=== PATIENT | male | born 1985 | race Two or more races ===

== ENCOUNTER 2019-12-31 21:24 | Emergency (ER) | payer OTHER ==
[~2019-12-31] VITALS: Ht 167.6 cm; Wt 68.0 kg
[2019-12-31 22:00] VITALS: BP 124/79
--- NOTE | 2019-12-31 22:09 | Emergency Room Report ---
History of Present Illness General Chief Complaint: Laceration Source: Patient Present Illness HPI Is a 34-year-old male who is right-hand dominant. He works at a nearby restaurant. He sustained a laceration because he cut his left thumb with a knife. Onset prior to arrival. No active bleeding. Pain is well controlled. Bleeding is controlled. No other injury. Nothing made it better. Nothing made it worse. Allergies: Coded Allergies: No Known Allergies (Unverified , 12/31/19) Patient History Past Medical History: see triage record, old chart reviewed Past Surgical History: none Pertinent Family History: none Social History: Denies: smoking Immunizations: other Reviewed Nursing Documentation: PMH: Agreed; PSxH: Agreed Nursing Documentation-PMH Past Medical History: No Stated History Review of Systems Eye: Denies: eye pain, blurred vision ENT: Denies: ear pain, nose congestion, throat swelling Respiratory: Denies: cough, shortness of breath Cardiovascular: Denies: chest pain, palpitations Gastrointestinal: Denies: abdominal pain, diarrhea, nausea, vomiting Musculoskeletal: Denies: back pain, joint pain Skin: Denies: rash Neurological: Denies: headache, numbness Endocrine: Denies: increased thirst, increased urine Hematologic/Lymphatic: Denies: easy bruising All Other Systems: negative except mentioned in HPI Physical Exam Vital Signs Date Time Temp Pulse Resp B/P (MAP) Pulse Ox O2 Delivery O2 Flow Rate FiO2 12/31/19 21:47 98.1 88 16 124/79 (94) 98 Room Air Vitals normal Sp02 EP Interpretation: reviewed, normal General Appearance: well appearing, no apparent distress, alert Head: normocephalic, atraumatic Eyes: bilateral eye PERRL, bilateral eye EOMI ENT: hearing grossly normal, normal pharynx Neck: full range of motion, supple, no meningismus Respiratory: chest non-tender, lungs clear, normal breath sounds Cardiovascular #1: regular rate, rhythm, no murmur Gastrointestinal: normal bowel sounds, non tender, no mass, no organomegaly, no bruit, non-distended Musculoskeletal: back normal, normal range of motion, gait/station normal, other - Left thumb: 2 cm laceration on the dorsal surface of the proximal phalanx. No tendon involvement. Full range of motion of the MCP and DIP joint. Psychiatric: mood/affect normal Procedures Laceration/Wound Repair Laceration/Wound Repair : Consent: Verbal Wound Location: upper extremity Wound's Depth, Shape: linear Wound Length (cm): 2 Irrigated w/ Saline (ccs): 1000 Anesthesia: 1% Lidocaine Volume Anesthetic (ccs): 2 Wound Repaired With: sutures Suture Size/Type: 6:0, proline Number of Sutures: 6 Sterile Dressing Applied?: Yes Patient Tolerated: Well Complications: None Medical Decision Making Diagnostic Impression: Primary Impression: Laceration of thumb, left Qualified Codes: S61.012A - Laceration without foreign body of left thumb without damage to nail, initial encounter ER Course Patient presents with left thumb laceration. No foreign body. No evidence of tendon laceration. Will discharge home. Last Vital Signs Date Time Temp Pulse Resp B/P (MAP) Pulse Ox O2 Delivery O2 Flow Rate FiO2 12/31/19 21:47 98.1 88 16 124/79 (94) 98 Room Air Status: improved Disposition: HOME, SELF-CARE Condition: Stable Scripts Ibuprofen* (MOTRIN*) 600 Mg Tablet 600 MG ORAL THREE TIMES A DAY, #30 TAB 0 Refills Prov: Tuan Varghese MD 12/31/19 Patient Instructions: Laceration Care, Adult Additional Instructions: Keep wound clean. Apply antibiotic ointment. Keep it covered. Follow-up with Workmen's Comp. doctor in 7 to 10 days for suture removal. Return if worse. Tuan Varghese MD Dec 31, 2019 22:09
[2019-12-31] MEDS ORDERED: Tetanus/Diptheria/Pertussis IM ONE (22:15)
[2019-12-31] MEDS ORDERED: Bacitracin Oint UD TOPIC ONE (22:22)
[2019-12-31] MEDS ORDERED: IBUPROFEN600 MG ORAL (22:27)
[2019-12-31] MEDS ORDERED: Neosporin Oint Ud Pkt TOPIC ONE (22:30)
[2019-12-31 22:37] VITALS: BP 124/79
[2020-01-07] MEDS ORDERED: DOUBLE ANTIBI28.4 GM TP (15:06)
== END 2019-12-31 22:35 | disposition home or self-care (01) ==
LOC: EMR 22:12
DX: S61.012A Laceration without foreign body of left thumb without damage to nail, initial encounter (principal); Z23 Encounter for immunization; W26.0XXA Contact with knife, initial encounter; Y92.9 Unspecified place or not applicable; Y99.0 Civilian activity done for income or pay
CPT/HCPCS: 90471; 90715; 99283

== ENCOUNTER → 2020-01-07 | Emergency (ER) | payer OTHER ==
[~2020-01-07] VITALS: Ht 160 cm; Wt 65.8 kg
[~2020-01-07] MED LIST: DOUBLE ANTIBI28.4 GM TP; IBUPROFEN600 MG ORAL
--- NOTE | 2020-01-07 14:45 | NUR ---
ED Nurse Note: Pt ambulated to ED for LT thumb suture removal. Pt's VSS, on RA. Placed on RME.
[2020-01-07 14:49] VITALS: BP 120/80
--- NOTE | 2020-01-07 15:03 | NUR ---
ER DISCHARGE NOTE: Patient is cleared to be discharged per ERPA, pt is aox4, on room air, with stable vital signs. pt was given dc and prescription instructions, pt was able to verbalize understanding, pt id band removed. pt is able to ambulate with steady gait. pt took all belongings.
--- NOTE | 2020-01-07 15:05 | Emergency Room Report ---
History of Present Illness General Chief Complaint: General Complaint Source: Patient Present Illness HPI 34-year-old male presents to the emergency department for suture removal of sutures that were placed approximately 1 week ago on the left thumb. Patient denies pain, erythema, discharge, tenderness. Patient is up-to-date with vaccinations according to records. No complaints at this time COVID-19 risk:Travel to affect: No Has patient experienced huerta: No Allergies: Coded Allergies: No Known Allergies (Unverified , 12/31/19) Patient History Past Medical History: see triage record Past Surgical History: none Pertinent Family History: none Immunizations: UTD Reviewed Nursing Documentation: PMH: Agreed; PSxH: Agreed Nursing Documentation-PMH Past Medical History: No Stated History Review of Systems All Other Systems: negative except mentioned in HPI Physical Exam Vital Signs Date Time Temp Pulse Resp B/P (MAP) Pulse Ox O2 Delivery O2 Flow Rate FiO2 01/07/20 14:39 97.9 70 16 120/80 (93) 98 Room Air Sp02 EP Interpretation: reviewed, normal General Appearance: no apparent distress, alert, GCS 15, non-toxic Head: normocephalic, atraumatic Eyes: bilateral eye normal inspection, bilateral eye PERRL ENT: hearing grossly normal, normal voice Neck: full range of motion Respiratory: chest non-tender, lungs clear, normal breath sounds, speaking full sentences Cardiovascular #1: regular rate, rhythm, no edema Gastrointestinal: normal bowel sounds, non tender, soft Rectal: deferred Genitourinary: normal inspection Musculoskeletal: back normal, normal range of motion, gait/station normal, non- tender Neurologic: alert, motor strength/tone normal, oriented x3, sensory intact, responsive, speech normal Psychiatric: judgement/insight normal Skin: wd healing/no infection noted - left thumb with 6 sutures Lymphatic: no adenopathy Medical Decision Making PA Attestation Dr. Tracy Is my supervising Physician whom patient management has been discussed with. Diagnostic Impression: Primary Impression: Encounter for removal of sutures ER Course 34-year-old male presents to the emergency department for suture removal of sutures that were placed approximately 1 week ago on the left thumb. Patient denies pain, erythema, discharge, tenderness. Patient is up-to-date with vaccinations according to records. No complaints at this time Ddx considered but are not limited to laceration, tendon injury, cellulitis, dehiscence. Vital signs: are WNL, pt. is afebrile H&PE are most consistent with: healed laceration of the LEft Thumb ORDERS: none required at this time, the diagnosis is clinical ED INTERVENTIONS: - 6 Sutures removed. DISCHARGE: At this time pt. is stable for d/c to home. Will provide printed patient care instructions, and any necessary prescriptions. Care plan and follow up instructions have been discussed with the patient prior to discharge. Last Vital Signs Date Time Temp Pulse Resp B/P (MAP) Pulse Ox O2 Delivery O2 Flow Rate FiO2 01/07/20 14:49 97.9 16 120/80 98 Room Air 01/07/20 14:49 70 Disposition: HOME, SELF-CARE Condition: Stable Patient Instructions: Suture Removal, Care After Additional Instructions: Take medications as directed. Follow up with a Primary Care Provider in 3-5 days, even if your symptoms have resolved. Return sooner to ED if new symptoms occur, or current symptoms become worse. - Please note that this Emergency Department Report was dictated using [employer] software, occasionally this can lead to erroneous entry secondary to interpretation by the dictation equipment. Mee Chen Jan 07, 2020 15:05
== END | disposition home or self-care (01) ==
LOC: EMR 15:20
DX: Z48.02 Encounter for removal of sutures (principal)
CPT/HCPCS: 99281